=== PATIENT | male | born 1950 | race Caucasian/White ===

== ENCOUNTER 2017-01-07 12:27 | Emergency (ER) | payer OTHER, BC ==
[~2017-01-07] VITALS: Ht 177.8 cm; Wt 100.0 kg
[2017-01-07] MEDS ORDERED: LISINOPRIL5 MG PO (12:44)
[2017-01-07] MEDS ORDERED: METOPROLOL SUCC25 MG PO (12:44)
[2017-01-07 13:38] LABS: ADD MIUA? NO; BILIRUBIN NEGATIVE; BLOOD NEGATIVE; COLOR YELLOW ((YELLOW)); GLUCOSE (STRIP) 50; KETONES NEGATIVE; LEUKOCYTES NEGATIVE; NITRITE NEGATIVE; PROTEIN (STRIP) NEGATIVE; SPECIFIC GRAVITY 1.014 (1.000-1.030); UCUL ADDED? NO; UROBILINOGEN 0.2 MG/DL (0.2-1.0)
[2017-01-07] MEDS ORDERED: TRAMADOL HCL50 MG PO (14:11)
[2017-01-07] MEDS ORDERED: FLEXERIL10 MG PO (14:11)
[2017-01-07] MEDS ORDERED: NAPROSYN500 MG PO (14:11)
[2017-01-07 14:31] VITALS: BP 136/79
== END 2017-01-07 14:32 | disposition home or self-care (01) ==
LOC: EME 12:27
PROVIDERS: Nurse Practitioner Family
DX: S39.012A Strain of muscle, fascia and tendon of lower back, initial encounter (principal); X50.1XXA Overexertion from prolonged static or awkward postures, initial encounter; I42.9 Cardiomyopathy, unspecified
CPT/HCPCS: 72220; 81003; 99281; 99284; J1885; J2405; J3010